=== PATIENT | female | born 1955 | race Caucasian/White ===

== ENCOUNTER 2018-03-17 13:42 | Outpatient (CLI) | payer BC ==
--- NOTE | 2018-03-23 14:52 | MMO ---
BILATERAL SCREENING MAMMOGRAM: Date: 03/17/18 COMPARISON: 03/14/17, 03/05/16, 02/14/15. HISTORY: Annual screening exam. This patient's mammogram was interpreted with the assistance of computer-aided detection. FINDINGS: The breasts are heterogeneously dense. There is no dominant mass, suspicious calcification, or other sign of malignancy. IMPRESSION: BIRADS 1: Negative POS: [facility]
== END 2018-03-17 13:43 | disposition home or self-care (01) ==
LOC: SCSMAMMO 13:42
PROVIDERS: ATTEND Family Medicine
DX: Z12.31 Encounter for screening mammogram for malignant neoplasm of breast (principal)
CPT/HCPCS: 77067

== ENCOUNTER 2018-08-25 12:26 | Inpatient (IN) | payer BC ==
[2018-08-25 13:14] LABS: ALT (SGPT) 17 U/L (8-55); AST (SGOT) 18 U/L (5-34); Albumin 4.3 g/dL (3.4-4.8); Alkaline Phosphatase 65 U/L (40-150); Anion Gap 13 mmol/L (10-20); BUN (Urea Nitrogen) 10 mg/dL (9.8-20.1); Bilirubin, Total 0.8 mg/dL (0.2-1.2); CK (CPK) 164 U/L (29-168); Calc. Creatinine Clearance 0 mL/min (70-130); Calcium 9.4 mg/dL (7.8-10.44); Carbon Dioxide 22 mmol/L (23-31); Chloride 106 mmol/L (98-107); Estimated GFR-MDRD 63; Globulin 2.9 g/dL (2.4-3.5); Glucose 89 mg/dL (80-115); Potassium 4.3 mmol/L (3.5-5.1); Protein, Total 7.2 g/dL (6.0-8.3); Sodium 137 mmol/L (136-145)
[2018-08-25] MEDS ORDERED: Diazepam 5 MG TAB ONE (13:15)
[2018-08-25] MEDS ORDERED: Meclizine HCl 25 MG TAB ONE (13:15)
--- NOTE | 2018-08-25 13:28 | CT ---
NONCONTRAST CT HEAD: Date: 08-25-18 History: Headache, dizziness. Comparison: None available. FINDINGS: There is no evidence of a hemorrhage, acute infarction, mass effect or midline shift. The ventricular system is normal in size, shape, and position. There is a linear area of diminished attenuation in t he right cerebellar hemisphere which may potentially represent a remote infarction although the exact age is indeterminate and is very small in size. Visualized paranasal sinuses and mastoid air cells a re clear. Calvarial structures are intact. IMPRESSION: 1. Linear low density focus right cerebellar hemisphere suggesting a very small infarction of indeter minate age and may be more remote in origin. 2. No acute cortical infarction or hemorrhage is seen. POS: [facility]
[2018-08-25 13:30] LABS: Band 2 % (5-11); Eosinophils 4 % (0-10); Hemoglobin 14.1 g/dL (12.0-16.0); Lymphocytes 31 % (21-51); MDiff Complete? YES; Mean Corpuscular HGB CONC 32.4 g/dL (32.0-36.0); Mean Corpuscular Hemoglobin 30.4 pg (27.0-31.0); Mean Platelet Volume 6.1 fL (7.4-10.4); Monocytes 7 % (0-10); Neutrophil 53 % (42-75); Platelet Count 277 thou/uL (130-400); Platelet Morphology Comment Appears Adequate; RBC Distribution Width 11.8 % (11.5-14.5); Reactive Lymphocytes 2 % (0-10); Red Blood Cell (RBC) Count 4.65 mill/uL (4.20-5.40); White Blood Cell (WBC) Count 5.3 thou/uL (4.8-10.8)
[2018-08-25 18:36] VITALS: BMI 24.7
[2018-08-25] MEDS ORDERED: Ondansetron ODT 4 MG TAB PO PRN (22:23)
[2018-08-25] MEDS ORDERED: Ondansetron PF 4 MG/2 ML Vial IVP PRN (22:23)
[2018-08-25] MEDS ORDERED: Acetaminophen 325 MG TAB PO PRN (22:23)
--- NOTE | 2018-08-26 03:09 | HP ---
PRIMARY CARE PHYSICIAN: Christina Cantu MD CHIEF COMPLAINT: Double vision ad dizziness. HISTORY OF PRESENT ILLNESS: Ms. Rogers is a pleasant 63-year-old female with past medical history of hypothyroidism, who had presented to [facility] ER earlier today with symptoms of dizziness and blurred vision that started early this morning when she woke up. She stated that she had done some yard work yesterday with lot of bending, twisting, and she felt fine last night, but when she went to bed and woke up, she had noticed symptoms start. She stated that these symptoms have never presented in the past, she had denied any fever, chills, any falls or trauma. Denied any chest pain, shortness of breath, or abdominal pain. No nausea or vomiting. She was given Valium and meclizine, which had improved her symptoms. CT of brain showed a linear low-density focus right cerebellar hemispheres suggesting a very small infarction of indeterminate age, may be more remote in origin. Otherwise, no acute cortical infarction or hemorrhage was seen. She was then transferred to [facility] for further evaluation, workup, and management of her symptoms. Upon arrival, she had improved double vision and dizziness. She had denied any chest pain, shortness of breath, or abdominal pain. No nausea or vomiting. Vital signs upon arrival were stable with BP 128/80, pulse 66, respirations 18. She remained afebrile with a temperature of 97.6 degrees Fahrenheit, O2 saturation 96% on room air. Lab work was essentially unremarkable. Troponin less than 0.010. Normal white count. It was determined that she would be admitted under observation for further workup and management of her symptoms. REVIEW OF SYSTEMS: All other systems reviewed and found to be negative unless mentioned in the HPI. PAST MEDICAL HISTORY: Hypothyroidism. PAST SURGICAL HISTORY: Thyroidectomy. PSYCHIATRIC HISTORY: Anxiety. SOCIAL HISTORY: Denies any alcohol, tobacco, or illicit drug use. ALLERGIES: NONE. HOME MEDICATIONS: 1. Simvastatin 20 mg oral daily. 2. Levothyroxine 100 mcg oral daily. 3. Aspirin 81 mg daily. 4. Omeprazole 20 mg p.o. at bedtime. 5. Loratadine 10 mg p.o. at bedtime. PHYSICAL EXAMINATION: VITAL SIGNS: BP 128/80, pulse 66, respirations 18, temperature 97.6 degrees Fahrenheit, and O2 saturations 96% on room air. GENERAL: The patient is awake, alert, and oriented x3. No acute distress noted. HEENT: Atraumatic, normocephalic. Pupils are round and reactive to light. Extraocular muscles intact. Moist mucous membranes noted. Oropharynx is clear without exudates or erythema. NECK: Soft and supple. No JVD. No bruit noted. CARDIOVASCULAR: Positive S1 and S2. Regular rate and rhythm. No murmurs auscultated. RESPIRATORY: Clear to auscultation bilaterally. No wheezes, rales, or rhonchi. ABDOMEN: Soft and nontender. Bowel sounds present. No rebound. No rigidity. MUSCULOSKELETAL: Strength 5+ bilaterally upper and lower extremities. No edema noted. NEUROLOGIC: Cranial nerves II through XII intact. Nystagmus present. The patient is oriented to person, place, and time. Speech is intact and normal. Gait was not assessed. SKIN: Warm, dry, and intact. Normal color. LABORATORY DATA: WBC 5.3, RBC 4.65, hemoglobin 14.1, platelets 277. Sodium 137, potassium 4.3, anion gap 13, BUN 10, creatinine 0.90, estimated GFR 63, glucose 89, alkaline phosphatase 65. Creatine kinase 164. Troponin less than 0.010. DIAGNOSTIC IMAGING: CT of brain without contrast showed linear low-density focus right cerebellar hemisphere suggesting a very small infarction of indeterminate age, may be more remote in origin, no acute cortical infarction or hemorrhage is seen. EKG showed normal sinus rhythm. ASSESSMENT AND PLAN: 1. Double vision with dizziness and ataxia, rule out transient ischemic attack and cerebrovascular accident. Check MRI noncontrast brain, echocardiogram, and carotid Dopplers. Check lipid panel in the morning. Continue on the patient's home regimen including aspirin and statin therapy. Consult Neurology Services in the a.m. 2. Hypothyroidism. Continue on patient's home regimen, check TSH. 3. Deep venous thrombosis and gastrointestinal prophylaxis. 4. Code status, full code. DISPOSITION: Pending further workup and clinical findings. Job ID: [id number]
[2018-08-26 04:47] LABS: #Basophils 0.1 thou/uL (0.0-0.2); #Eosinphils 0.2 thou/uL (0.0-0.7); #Lymphocytes 1.6 thou/uL (1.20-3.40); #Monocytes 0.4 thou/uL (0.11-0.59); #Neutrophils 2.5 thou/uL (1.40-6.50); %Basophils 1.3 % (0.0-1.0); %Eosinophils 4.5 % (0.0-10.0); %Lymphocytes 33.8 % (21.0-51.0); %Monocytes 7.8 % (0.0-10.0); %Neutrophils 52.7 % (42.0-75.0); Hemoglobin 12.8 g/dL (12.0-16.0); Mean Corpuscular HGB CONC 33.4 g/dL (32.0-36.0); Mean Corpuscular Hemoglobin 32.1 pg (27.0-31.0); Mean Platelet Volume 6.2 fL (7.4-10.4); Platelet Count 250 thou/uL (130-400); RBC Distribution Width 11.4 % (11.5-14.5); Red Blood Cell (RBC) Count 3.99 mill/uL (4.20-5.40); White Blood Cell (WBC) Count 4.7 thou/uL (4.8-10.8)
[2018-08-26 05:05] LABS: Anion Gap 11 mmol/L (10-20); BUN (Urea Nitrogen) 11 mg/dL (9.8-20.1); Calc. Creatinine Clearance 66 mL/min (70-130); Calcium 8.9 mg/dL (7.8-10.44); Carbon Dioxide 25 mmol/L (23-31); Cardiac Risk 2.5 (Less than 4.5); Chloride 108 mmol/L (98-107); Cholesterol 182 mg/dl (< 200 Desired); Estimated GFR-MDRD 57; Glucose 92 mg/dL (80-115); HDL Cholesterol 73 mg/dL (>60 Neg Risk); LDL Cholesterol, Calculated 95 mg/dL; Potassium 4.4 mmol/L (3.5-5.1); Sodium 140 mmol/L (136-145); Triglycerides 72 mg/dL (Less than 150)
[2018-08-26] MEDS: Levothyroxine Sodium 100 MCG TAB PO SCH (05:39)
[2018-08-26] MEDS ORDERED: Lorazepam 1 MG TAB PO PRN (05:58)
[2018-08-26] MEDS ORDERED: Meclizine HCl 25 MG TAB PO PRN (05:59)
[2018-08-26] MEDS ORDERED: Levothyroxine Sodium 25 MCG TAB PO SCH (06:00)
[2018-08-26] MEDS: Famotidine 20 MG TAB PO SCH ×2 (08:41→21:24)
[2018-08-26] MEDS ORDERED: Simvastatin 20 MG TAB PO SCH (09:00)
[2018-08-26] MEDS ORDERED: Gadobenate Dimeglumine 529 MG/1 ML (20ML VIAL) ONE (10:18)
--- NOTE | 2018-08-26 13:53 | MRI ---
BRAIN AND INTERNAL AUDITORY CANAL MRI WITH AND WITHOUT CONTRAST: Date: 08/26/18 HISTORY: Dizziness. Evaluate for CVA. COMPARISON: None. FINDINGS: There is an intrinsic T1 hypointense, enhancing lesion with adjacent T2 and FLAIR hypointensity. This enhancing component measures 0.6 cm and is intrinsically hyperdense on the noncontrast head CT. A sm all cavernoma in the right temporal lobe is favored. There is no pathologic enhancement of the brain parenchyma. There is no hemorrhage. No midline shift. Basilar cisterns are patent. Brain volume is ag e-appropriate. Cortical mercer-white matter differentiation preserved. No evidence of hydrocephalus. Central arterial flow-voids are maintained. There is restricted diffusion with associated FLAIR hyper intensity involving the inferomedial aspect of the right thalamus. Additional areas of restricted dif fusion are not appreciated. No significant white matter hyperintensities on the axial T2 or FLAIR seq uence. There is symmetric signal intensity of the internal auditory canals, as well as the 7th/8th and 5th c ranial nerve complexes. There is no associated abnormal enhancement. IMPRESSION: 1. 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 2. Acute infarct involving the inferomedial aspect of right thalamus. POS: [facility]
--- NOTE | 2018-08-26 14:38 | ULT ---
CAROTID DUPLEX SONOGRAM: Date: 08/26/18 HISTORY: Vascular disease. CVA> FINDINGS: RIGHT: Scattered areas of mild plaque. Color and spectral Doppler evaluation, peak systolic velocity of 62 c m/second, and ICA/CCA ratio of 0.8 suggests no hemodynamically significant stenosis within the extrac ranial right ICA. Antegrade flow within the vertebral artery. LEFT: Minimal plaque. Color and spectral Doppler evaluation, peak systolic velocity of 58 cm/second, and IC A/CCA ratio of 0.7 suggests no hemodynamically significant stenosis within the extracranial left ICA. Antegrade flow within the vertebral artery. IMPRESSION: Mild atherosclerosis. No sonographic evidence of significant extracranial ICA stenosis. POS: [facility]
[2018-08-26] MEDS ORDERED: Clopidogrel Bisulfate 75 MG TAB PO SCH (16:30)
[2018-08-26] MEDS ORDERED: Aspirin 81 mg Enteric Coated Tablet PO SCH (21:00)
[2018-08-26] MEDS ORDERED: Loratadine 10 MG TAB PO SCH (21:00)
--- NOTE | 2018-08-26 22:01 | PDOC.PN ---
- Subjective Encounter Start Date: 08/26/18 Encounter Start Time: 19:30 Patient seen and examined for Acute CVA. Double vision +. No new focal deficits. No new complaints. No overnight events - Objective Resuscitation Status - Order Detail: 08/25/18 22:23 Resuscitation Status Routine Co-Sign Provider: Resuscitation Status: FULL: Full Resuscitation MAR Reviewed: Yes Vital Signs & Weight: Vital Signs (12 hours) Temp Pulse Pulse Pulse Resp BP BP 08/26/18 20:00 97.9 F 77 16 08/26/18 15:58 97.8 F 85 16 08/26/18 12:00 97.9 F 81 16 08/26/18 10:40 84 93 112/70 119/67 BP Pulse Ox 08/26/18 20:00 120/68 96 08/26/18 15:58 110/64 96 08/26/18 12:00 104/67 99 08/26/18 10:40 Weight Weight 158 lb 1.6 oz I&O: 08/25/18 08/26/18 08/27/18 06:59 06:59 06:59 Intake Total 250 Balance 250 Result Diagrams: 08/26/18 04:37 08/26/18 04:37 EKG Reviewed by me: Yes (Tele SR) Phys Exam - Physical Examination Constitutional: NAD Respiratory: no wheezing, no rhonchi Cardiovascular: RRR, no rub Gastrointestinal: soft, positive bowel sounds Musculoskeletal: no edema Neurological: moves all 4 limbs Dx/Plan - Plan DVT proph w/SCDs 1. Acute Rt thalamic CVA causing diplopia and Gait imbalance 2. HTN 3. HLD 4. ?Cavernoma of Rt Temporal lobe of brain 5. Hypothyroidism PLAN: Cont ASA Plavix added per Neurology Increase Statin dose Cont other meds as below May need to change PPI to Dexilant due to interaction with Plavix Laboratory Tests 08/26/18 04:37 LDL Cholesterol, Calc 95 Review of Systems - Review of Systems Respiratory: negative: Cough, Dry, Shortness of Breath, Hemoptysis, SOB with Excertion, Pleuritic Pain, Sputum, Wheezing Cardiovascular: negative: chest pain, palpitations, orthopnea, paroxysmal nocturnal dyspnea, edema, light headedness, other - Medications/Allergies Allergies/Adverse Reactions: Allergies Allergy/AdvReac Type Severity Reaction Status Date / Time No Known Allergies Allergy Verified 08/25/18 18:41 Medications: Current Medications Acetaminophen (Tylenol) 650 mg PO Q4H PRN PRN Reason: Headache/Fever/Mild Pain (1-3) Aspirin (Ecotrin) 81 mg PO HS [facility] Last Admin: 08/26/18 21:24 Dose: 81 mg Clopidogrel Bisulfate (Plavix) 75 mg PO DAILY [facility] Famotidine (Pepcid) 20 mg PO BID [facility] Last Admin: 08/26/18 21:24 Dose: 20 mg Levothyroxine Sodium (Synthroid) 100 mcg PO 0600 [facility] Last Admin: 08/26/18 05:39 Dose: 100 mcg Loratadine (Claritin) 10 mg PO HS [facility] Last Admin: 08/26/18 21:24 Dose: 10 mg Lorazepam (Ativan) 1 mg PO DAILY PRN PRN Reason: Claustrophobia Meclizine HCl (Antivert) 25 mg PO Q8H PRN PRN Reason: Dizziness Ondansetron HCl (Zofran Odt) 4 mg PO Q6H PRN PRN Reason: Nausea/Vomiting Ondansetron HCl (Zofran) 4 mg IVP Q6H PRN PRN Reason: Nausea/Vomiting Pantoprazole Sodium (Protonix) 40 mg PO HS [facility] Last Admin: 08/26/18 21:25 Dose: Not Given Simvastatin (Zocor) 20 mg PO DAILY [facility] Last Admin: 08/26/18 08:41 Dose: 20 mg Sodium Chloride (Flush - Normal Saline) 10 ml IVF PRN PRN PRN Reason: Saline Flush Last Admin: 08/26/18 08:42 Dose: 10 ml
[2018-08-27] MEDS: Levothyroxine Sodium 100 MCG TAB PO SCH (06:18)
[2018-08-27] MEDS: Famotidine 20 MG TAB PO SCH (08:18)
[2018-08-27] MEDS ORDERED: Clopidogrel Bisulfate 75 MG TAB PO SCH (09:00)
[2018-08-27 16:27] VITALS: BP 101/67; TEMP 97.3
[2018-08-27] MEDS ORDERED: Atorvastatin Calcium 20 MG TAB PO SCH (21:00)
--- NOTE | 2018-08-28 14:46 | DIS ---
DATE OF ADMISSION: 08/25/2018 DATE OF DISCHARGE: 08/27/2018 DISCHARGE DISPOSITION: Home. FOLLOWUP: 1. Follow up with primary care physician, Dr. Christina Cantu in 1 week. 2. Follow up with Neurology, Dr. Mead in 2 weeks. ALLERGIES: NO KNOWN DRUG ALLERGIES. FALL PRECAUTION WAS EMPHASIZED. THE PATIENT WAS SEEN ON THE DAY OF DISCHARGE. DENIES ANY NEW COMPLAINTS. NO CHEST PAIN, SHORTNESS OF BREATH OR PALPITATIONS. DISCHARGE MEDICATION: 1. Aspirin 81 mg daily. 2. Plavix 75 mg daily. 3. Levothyroxine 100 mcg daily. 4. Claritin 10 mg at bedtime. 5. Zocor 20 mg daily. 6. Dexilant 60 mg daily. BRIEF HOSPITAL COURSE: The patient is a 63-year-old female, who presented to the emergency room on August 25, 2018, with double vision and dizziness. Please refer to the history and physical for further details. The patient was admitted to the stroke unit with a diagnosis of possible acute CVA. MRI of the brain with internal auditory canal showed acute infarct involving the inferomedial aspect of the right thalamus. It also showed an incidental cavernoma of the right temporal lobe. Carotid Doppler showed mild atherosclerosis without sonographic evidence of significant extracranial ICA stenosis. Echocardiogram showed left ventricular ejection fraction of 50% to 55% with mild tricuspid regurgitation, mild pulmonic regurgitation, mild mitral regurgitation, and mild bileaflet mitral valve prolapse with mildly enlarged right atrium. Ejection fraction was 50% to 55%. She was evaluated by Neurology. Plavix has been added to her regimen. Due to possible interaction between Plavix and omeprazole, Dexilant has been added instead of omeprazole. Symptoms have significantly improved. She feels stable for discharge. FINAL DIAGNOSES: 1. Acute right thalamic cerebrovascular accident, causing double vision and gait imbalance. 2. 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 3. Hypertension. 4. Hyperlipidemia. 5. Hypothyroidism. 6. Chronic kidney disease, stage 2. 7. Chronic diastolic heart failure with mild bileaflet mitral valve prolapse on echocardiogram. SIGNIFICANT LABS: Fasting lipid profile showed cholesterol of 182, LDL 95, HDL 75, and triglycerides 72. Plan was discussed with the patient and the family in detail. They stated understanding. Job ID: [id number]
== END 2018-08-27 18:21 | disposition home or self-care (01) | DRG 66 ==
LOC: SCSER 12:26 → OBSVTOIN 17:32 → 2SE 17:32
PROVIDERS: ADMIT Internal Medicine; ATTEND Internal Medicine
DX: I63.89 Other cerebral infarction (principal); R26.0 Ataxic gait; H53.2 Diplopia; R40.2412 Glasgow coma scale score 13-15, at arrival to emergency department; E03.9 Hypothyroidism, unspecified; E78.5 Hyperlipidemia, unspecified; I10 Essential (primary) hypertension; F41.9 Anxiety disorder, unspecified; Z90.89 Acquired absence of other organs; Z79.82 Long term (current) use of aspirin; Z79.899 Other long term (current) drug therapy
CPT/HCPCS: 36415; 70450; 70553; 80048; 80053; 80061; 82550; 84484; 85025; 93005; 93306; 93880; A9577